=== PATIENT | male | born 1935 | race Caucasian/White ===

== ENCOUNTER → 2019-04-08 | Outpatient (CLI) | payer OTHER ==
--- NOTE | 2019-04-08 14:44 | KCIC ---
STUDY: MRI of the left shoulder without contrast INDICATION: Left shoulder pain, crepitus and decreased range of motion. COMPARISON: Left shoulder radiographs 03/09/2019 TECHNIQUE: Multiplanar MR imaging of the left shoulder performed without the use of intravenous or intra-articular contrast. 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 Spurring along the undersurface of the distal clavicle exerts mild mass effect on the subjacent supraspinatus. Small amount of fluid distending the subacromial subdeltoid bursa. Rotator cuff: Supraspinatus and infraspinatus tendinosis. The supraspinatus tendon is thinned with articular sided fraying/partial tearing throughout the majority of its AP dimension at and medial to the footprint. This appearance extends to involve the infraspinatus as well. Superimposed high-grade tearing of the mid to posterior supraspinatus at the footprint with potential superimposed full-thickness perforating components such as seen on image 8 series 10. Also noted is an interstitial tear of the infraspinatus that extends to the myotendinous junction, images 3 through 7, series 7. The teres minor is intact. Subscapularis tendinosis without high-grade tear. Rotator cuff musculature bulk is maintained. Labrum: Degenerative tearing of the superior labrum. Long head biceps tendon: Intra-articular and extra-articular long head biceps tendinosis without discrete tear. Cartilage: No full-thickness chondral defect identified. Bones: No acute fracture or suspicious marrow signal abnormality. Some degenerative cystic changes at the greater tuberosity. Miscellaneous: Small shoulder joint effusion. No axillary adenopathy. Impression: 1. Supraspinatus and infraspinatus tendinosis as well as thinning of these tendons mainly on account of undersurface fraying/partial tearing both at and medial to the footprint. Superimposed high-grade tear of the mid to posterior supraspinatus with potential superimposed areas of full-thickness perforation given subtle discontinuity of the overlying bursal fibers. A small interstitial tear component extends to the infraspinatus myotendinous junction. Subscapularis tendinosis without tear. Rotator cuff muscular bulk is maintained. 2. Intra-articular and extra articular long head biceps tendinosis. 3. Degenerative tearing of the superior labrum. 4. Mild subacromial subdeltoid bursitis. 5. 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 Electronically signed by: BARAK HERRERA MD (04/08/2019 2:41 PM) [id number]
== END | disposition home or self-care (01) ==
LOC: KCIC MRI 10:34
PROVIDERS: ATTEND Orthopaedic Surgery
DX: S46.012A Strain of muscle(s) and tendon(s) of the rotator cuff of left shoulder, initial encounter (principal); S43.492A Other sprain of left shoulder joint, initial encounter; M25.412 Effusion, left shoulder; M19.012 Primary osteoarthritis, left shoulder; M75.52 Bursitis of left shoulder; Z96.659 Presence of unspecified artificial knee joint; X58.XXXA Exposure to other specified factors, initial encounter; Y93.89 Activity, other specified; Y92.89 Other specified places as the place of occurrence of the external cause; Y99.8 Other external cause status
CPT/HCPCS: 73221